=== PATIENT | male | born 1950 | race Caucasian/White ===

== ENCOUNTER 2020-02-24 10:32 | Inpatient (IN) | payer MEDICARE, OTHER ==
[~2020-02-24] VITALS: Ht 177.8 cm; Wt 98.9 kg
--- NOTE | 2020-02-24 10:44 | NUR ---
is in triage to consult for potential code neuro.
[2020-02-24] MEDS ORDERED: PIOG30TA68 PO (11:19)
[2020-02-24] MEDS ORDERED: METF500T17 PO (11:19)
[2020-02-24] MEDS ORDERED: TAMS-11 PO (11:20)
[2020-02-24] MEDS ORDERED: HYDR-3246 PO (11:21)
[2020-02-24] MEDS ORDERED: LOVA10TA PO (11:22)
[2020-02-24] MEDS ORDERED: GABA-826 PO (11:22)
[2020-02-24] MEDS ORDERED: ASPI-13 PO (11:23)
[2020-02-24] MEDS ORDERED: MULT1CAP6 PO (11:23)
[2020-02-24] MEDS ORDERED: DIPH25CA61 PO (11:28)
[2020-02-24 11:33] LABS: BASOPHILS % (AUTO) 1 % (0-1); EOSINOPHILS % (AUTO) 2 % (1-7); LYMPHOCYTES % (AUTO) 22 % (22-44); MEAN CORPUSCULAR HEMOGLOBIN 30.8 pg (27.5-34.5); MEAN CORPUSCULAR HGB CONC 33.8 g/dL (33.2-36.2); MEAN PLATELET VOLUME 7.1 fL (7.4-10.4); MONOCYTES % (AUTO) 6 % (2-9); NEUTROPHILS % (AUTO) 71 % (42-75); PLATELET COUNT 305 x10^3/uL (130-400); RED BLOOD COUNT 4.71 x10^6/uL (4.38-5.82); RED CELL DISTRIBUTION WIDTH 13.2 % (9.4-14.8)
[2020-02-24 11:38] LABS: INTERNATIONAL NORMALIZED RATIO 1.04 (0.93-1.1)
[2020-02-24 11:39] LABS: ANION GAP 7 mmol/L (5-15); CHLORIDE 108 mmol/L (98-107)
[2020-02-24 11:40] LABS: CREATININE 1.61 mg/dL (0.7-1.3)
[2020-02-24 11:46] LABS: MD NO
[2020-02-24] MEDS ORDERED: LABETALOL 20 MG/4 ML ONE (11:50)
--- NOTE | 2020-02-24 11:55 | NUR ---
NOTIFIED DR. ESPINAL THAT BP IS 214/88. LABETALOL ORDERED AND GIVEN.
[2020-02-24] MEDS ORDERED: LABETALOL 5MG/ML, 20ML IVPush ONE (12:00)
[2020-02-24] MEDS ORDERED: OMNIPAQUE 350 MG/ML, 100ML BOTTLE ONE (12:34)
--- NOTE | 2020-02-24 12:40 | NUR ---
MH=407/[address] ESPINAL AT BEDSIDE AND STATES THAT PT MAY HAVE PERMISSIVE HTN OF UP TO 220 SYSTOLIC.
--- NOTE | 2020-02-24 12:55 | NUR ---
BREAK RN: PT RESTING IN ROOM. AT BEDSIDE. CLOTHES MARKER ON. NSR NOTED. PROVIDER AWARE OF VS. CALL LIGHT IN PLACE. WILL CONTINUE TO MONITOR.
--- NOTE | 2020-02-24 13:55 | NUR ---
ADMITTING PROVIDER AT BEDSIDE.
[2020-02-24] MEDS ORDERED: ASPIRIN 325 MG TABLET ONE (14:25)
[2020-02-24] MEDS: SODIUM CHLORIDE 0.9% 1,000 ML IV SCH (14:29)
[2020-02-24] MEDS: ASPIRIN 325 MG TABLET PO SCH (14:29)
[2020-02-24] MEDS ORDERED: ACETAMINOPHEN 325 MG TABLET PO PRN (14:30)
[2020-02-24] MEDS ORDERED: morphine SULFATE 10 MG/ML, 1ML IVPush PRN (14:30)
[2020-02-24] MEDS ORDERED: POLYETHYLENE GLYCOL 17 GM PACKET PO PRN (14:30)
[2020-02-24] MEDS ORDERED: GLUCAGON 1 MG IM PRN (14:30)
[2020-02-24] MEDS ORDERED: HYDROcodone/APAP 5/325 TABLET PO PRN (14:30)
[2020-02-24] MEDS ORDERED: DOCUSATE 100 MG CAPSULE PO PRN (14:30)
[2020-02-24] MEDS ORDERED: BISACODYL 10 MG SUPP PR PRN (14:30)
[2020-02-24] MEDS ORDERED: DEXTROSE 50%, 50ML SYRINGE IVPush PRN (14:30)
[2020-02-24] MEDS ORDERED: DEXTROSE 4 GM TAB.CHEW PO PRN (14:30)
[2020-02-24] MEDS: INSULIN LISPRO 100 UNITS/ML, PEN SQ-INSULIN SCH ×2 (16:00→21:00)
[2020-02-24] MEDS: TAMSULOSIN 0.4 MG CAP.ER.24H PO SCH (17:20)
--- NOTE | 2020-02-24 18:54 | NUR ---
BEDSIDE REPORT FROM DEVON CANNON ASSUMING CARE OF PT AT THIS TIME
--- NOTE | 2020-02-24 20:20 | NUR ---
REPORT TO MISAEL CANNON PT READY FOR TRANSFER TO FLOOR
[2020-02-24 20:40] VITALS: BP 225/88
[2020-02-24] MEDS: SODIUM CHLORIDE FLUSH 10ML SYR IVF SCH (21:00)
[2020-02-24] MEDS: LABETALOL 5MG/ML, 20ML IVPush PRN (21:54)
[2020-02-24] MEDS: GABAPENTIN 100 MG CAPSULE PO SCH (21:54)
[2020-02-25] VITALS (9 sets, daily range): BP systolic 126–226; BP diastolic 72–99
[2020-02-25] MEDS: SODIUM CHLORIDE 0.9% 1,000 ML IV SCH (00:30)
[2020-02-25] MEDS: LABETALOL 5MG/ML, 20ML IVPush PRN ×3 (04:27→20:13)
[2020-02-25 05:12] LABS: ALANINE AMINOTRANSFERASE 15 U/L (12-78); ALBUMIN 3.5 g/dL (3.4-5.0); ANION GAP 6 mmol/L (5-15); CALCIUM 8.7 mg/dL (8.5-10.1); CHLORIDE 109 mmol/L (98-107); CREATININE 1.39 mg/dL (0.7-1.3)
[2020-02-25 05:22] LABS: ALKALINE PHOSPHATASE 65 U/L (45-117); BILIRUBIN,TOTAL 0.3 mg/dL (0.2-1.0); TOTAL PROTEIN 6.9 g/dL (6.4-8.2)
[2020-02-25 05:24] LABS: BASOPHILS % (AUTO) 1 % (0-1); EOSINOPHILS % (AUTO) 3 % (1-7); LYMPHOCYTES % (AUTO) 25 % (22-44); MEAN CORPUSCULAR HEMOGLOBIN 31.2 pg (27.5-34.5); MEAN CORPUSCULAR HGB CONC 34.2 g/dL (33.2-36.2); MEAN PLATELET VOLUME 6.9 fL (7.4-10.4); MONOCYTES % (AUTO) 6 % (2-9); NEUTROPHILS % (AUTO) 65 % (42-75); PLATELET COUNT 250 x10^3/uL (130-400); RED CELL DISTRIBUTION WIDTH 13.1 % (9.4-14.8)
[2020-02-25] MEDS: ASPIRIN 325 MG TABLET PO SCH (06:00)
[2020-02-25 06:41] LABS: MD NO
[2020-02-25] MEDS: PIOGLITAZONE HCL 30 MG PO SCH (09:00)
[2020-02-25] MEDS: INSULIN LISPRO 100 UNITS/ML, PEN SQ-INSULIN SCH ×4 (09:00→20:11)
[2020-02-25] MEDS ORDERED: ENALAPRILAT 1.25 MG/ML, 2ML IV ONE (10:00)
[2020-02-25] MEDS ORDERED: ENALAPRILAT 1.25 MG/ML, 1ML ONE (10:04)
[2020-02-25] MEDS: SODIUM CHLORIDE FLUSH 10ML SYR IVF SCH ×2 (10:38→20:12)
[2020-02-25] MEDS ORDERED: PHARMACY MAY ADJ FOR RENAL FX MC PRN (14:30)
[2020-02-25 15:17] LABS: CHOL/HDL RATIO 4.3; LDL/HDL RATIO 2.1 (0.5-3.0)
[2020-02-25] MEDS: ENOXAPARIN 40 MG/0.4 ML SQ SCH (16:43)
[2020-02-25] MEDS: TAMSULOSIN 0.4 MG CAP.ER.24H PO SCH (20:11)
[2020-02-25] MEDS: ATORVASTATIN 40 MG TABLET PO SCH (20:11)
[2020-02-25] MEDS: GABAPENTIN 100 MG CAPSULE PO SCH (20:12)
[2020-02-26] VITALS (9 sets, daily range): BP systolic 116–195; BP diastolic 66–87
[2020-02-26] MEDS: LISINOPRIL 5 MG TABLET PO SCH ×2 (01:53→08:06)
[2020-02-26] MEDS: ASPIRIN 325 MG TABLET PO SCH (05:27)
[2020-02-26 05:41] LABS: BASOPHILS % (AUTO) 1 % (0-1); EOSINOPHILS % (AUTO) 2 % (1-7); LYMPHOCYTES % (AUTO) 30 % (22-44); MEAN CORPUSCULAR HEMOGLOBIN 30.8 pg (27.5-34.5); MEAN CORPUSCULAR HGB CONC 33.5 g/dL (33.2-36.2); MEAN PLATELET VOLUME 6.8 fL (7.4-10.4); MONOCYTES % (AUTO) 6 % (2-9); NEUTROPHILS % (AUTO) 62 % (42-75); PLATELET COUNT 272 x10^3/uL (130-400); RED BLOOD COUNT 4.06 x10^6/uL (4.38-5.82); RED CELL DISTRIBUTION WIDTH 13.2 % (9.4-14.8)
[2020-02-26 05:49] LABS: MD NO
[2020-02-26 05:56] LABS: ANION GAP 4 mmol/L (5-15); CALCIUM 9.2 mg/dL (8.5-10.1); CHLORIDE 108 mmol/L (98-107)
[2020-02-26 05:59] LABS: CREATININE 1.43 mg/dL (0.7-1.3)
[2020-02-26] MEDS: PIOGLITAZONE HCL 30 MG PO SCH (07:54)
[2020-02-26] MEDS: SODIUM CHLORIDE FLUSH 10ML SYR IVF SCH ×2 (08:08→21:41)
[2020-02-26] MEDS: INSULIN LISPRO 100 UNITS/ML, PEN SQ-INSULIN SCH ×4 (08:08→21:27)
[2020-02-26] MEDS: LISINOPRIL 20 MG TABLET PO SCH (09:51)
[2020-02-26] MEDS: ENOXAPARIN 40 MG/0.4 ML SQ SCH (17:16)
[2020-02-26] MEDS ORDERED: INSULIN GLARGINE 100 UNITS/ML, PEN SQ-INSULIN SCH (21:00)
[2020-02-26] MEDS: TAMSULOSIN 0.4 MG CAP.ER.24H PO SCH (21:27)
[2020-02-26] MEDS: ATORVASTATIN 40 MG TABLET PO SCH (21:28)
[2020-02-26] MEDS: GABAPENTIN 100 MG CAPSULE PO SCH (21:28)
[2020-02-27 01:22] VITALS: BP 156/80
[2020-02-27] MEDS: ASPIRIN 325 MG TABLET PO SCH (06:13)
[2020-02-27 06:16] VITALS: BP 177/78
[2020-02-27] MEDS: PIOGLITAZONE HCL 30 MG PO SCH (08:14)
[2020-02-27] MEDS: INSULIN LISPRO 100 UNITS/ML, PEN SQ-INSULIN SCH ×4 (08:14→22:02)
[2020-02-27] MEDS: LISINOPRIL 20 MG TABLET PO SCH (08:14)
[2020-02-27] MEDS: SODIUM CHLORIDE FLUSH 10ML SYR IVF SCH ×2 (08:14→22:02)
[2020-02-27 12:20] VITALS: BP 129/69
[2020-02-27] MEDS: ENOXAPARIN 40 MG/0.4 ML SQ SCH (16:49)
[2020-02-27 18:58] VITALS: BP 138/76
[2020-02-27] MEDS ORDERED: INSULIN GLARGINE 100 UNITS/ML, PEN SQ-INSULIN SCH (21:00)
[2020-02-27] MEDS: TAMSULOSIN 0.4 MG CAP.ER.24H PO SCH (22:04)
[2020-02-27] MEDS: ATORVASTATIN 40 MG TABLET PO SCH (22:04)
[2020-02-27] MEDS: GABAPENTIN 100 MG CAPSULE PO SCH (22:05)
[2020-02-28 02:00] VITALS: BP 132/71
[2020-02-28] MEDS: ASPIRIN 325 MG TABLET PO SCH (06:09)
[2020-02-28 06:22] VITALS: BP 151/74
[2020-02-28] MEDS: INSULIN LISPRO 100 UNITS/ML, PEN SQ-INSULIN SCH ×2 (07:00→11:31)
[2020-02-28] MEDS: PIOGLITAZONE HCL 30 MG PO SCH (07:26)
[2020-02-28] MEDS: SODIUM CHLORIDE FLUSH 10ML SYR IVF SCH (07:50)
[2020-02-28] MEDS: LISINOPRIL 20 MG TABLET PO SCH (07:50)
[2020-02-28 12:02] VITALS: BP 164/74
[2020-02-28] MEDS ORDERED: HYDR-3343 PO (13:09)
[2020-02-28] MEDS ORDERED: LISI-170 PO (13:09)
[2020-02-28] MEDS ORDERED: CLON1PAT2 TD (13:09)
[2020-02-28] MEDS ORDERED: ATOR40TA78 PO (13:09)
[2020-02-28] MEDS ORDERED: ASPI-13 PO (13:09)
[2020-02-28] MEDS ORDERED: SITA100T PO (13:09)
== END 2020-02-28 15:20 | disposition home or self-care (01) | DRG 65 ==
LOC: ED 12:02 → EDIP 12:32 → 4WST 20:33
PROVIDERS: ADMIT Internal Medicine; ATTEND Internal Medicine
DX: I63.9 Cerebral infarction, unspecified (principal); Q21.1 Atrial septal defect; I25.3 Aneurysm of heart; G81.91 Hemiplegia, unspecified affecting right dominant side; E11.42 Type 2 diabetes mellitus with diabetic polyneuropathy; E78.5 Hyperlipidemia, unspecified; F17.200 Nicotine dependence, unspecified, uncomplicated; G89.29 Other chronic pain; N18.9 Chronic kidney disease, unspecified; E11.22 Type 2 diabetes mellitus with diabetic chronic kidney disease; I12.9 Hypertensive chronic kidney disease with stage 1 through stage 4 chronic kidney disease, or unspecified chronic kidney disease; N40.0 Benign prostatic hyperplasia without lower urinary tract symptoms; R29.810 Facial weakness; Z66 Do not resuscitate; Z79.82 Long term (current) use of aspirin; Z82.3 Family history of stroke; Z86.73 Personal history of transient ischemic attack (TIA), and cerebral infarction without residual deficits
CPT/HCPCS: 36415; 70450; 70496; 70498; 70551; 80048; 80053; 80061; 82962; 83036; 83735; 84100; 84443; 85025; 85610; 85730; 93005; 93306; 93880; 96374; 96375; 99285; G0378; J1650; Q9967; 92523-GN; J1815; J7030